=== PATIENT | female | born 1935 | race Caucasian/White ===

== ENCOUNTER → 2016-05-21 | Outpatient (CLI) | payer MEDICARE, OTHER ==
[~2016-05-21] MED LIST: CONTRAST GIVEN MC PRN; IOHEXOL 300 MG/ML 75 ML VIAL IV ONE
[2016-05-21 15:16] LABS: GFR 53.2
--- NOTE | 2016-05-21 16:35 | RAD ---
EXAM: CT abdomen/pelvis with and without contrast. HISTORY: Hematuria. Recurrent UTI. Crohn's disease. TECHNIQUE: Computed tomography of the abdomen and pelvis was performed before and after the intravenous administration of 60 mL [id number]-[id number]. COMPARISON: None. FINDINGS: Lung windows through the visualized portions of the bases reveal a small pericardial effusion. The heart is mildly enlarged. There is [id number] basilar atelectasis. Bone windows reveal no suspicious lesions. There are mild chronic lower thoracic compression deformities. There is moderate to severe lower lumbar degenerative disc disease. The liver and gallbladder the common duct measures 11 mm. There is mild to moderate intrahepatic biliary dilatation. 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 It does not clearly exert significant mass effect. There are no focal hepatic lesions. The spleen, adrenal glands and pancreas are unremarkable. There are no pathologically enlarged lymph nodes. There is no obstruction. There is a 1 cm cyst at the right renal lower pole. There are no suspicious solid lesions bilaterally. There is no hydronephrosis. There is no nephroureterolithiasis. There is diffuse bladder wall thickening without clear focal lesions. IMPRESSION: 1. No solid renal lesions or nephroureterolithiasis. Diffuse bladder wall thickening indicates chronic outlet obstruction or inflammation. Correlate with urinalysis. No clear tract lesions. 2. Mild extrahepatic biliary dilatation status post cholecystectomy. Correlate for cholestasis to assess significance. 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 These are not typically causes of biliary obstruction. 3. Mild cardiomegaly. Small pericardial effusion. *One or more of the following individualized dose reduction techniques were utilized for this examination: 1. Automated exposure control. 2. Adjustment of the mA and/or kV according to patient size. 3. Use of iterative reconstruction technique.
== END | disposition home or self-care (01) ==
LOC: CT 14:05
PROVIDERS: ATTEND Nurse Practitioner Occupational Health
DX: R31.9 Hematuria, unspecified (principal)
CPT/HCPCS: 36415; 74178; 82565; Q9967